=== PATIENT | female | born 1995 | race Asian ===

== ENCOUNTER 2018-03-30 05:42 | Inpatient (IN) ==
[2018-03-30] MEDS ORDERED: ONDANSETRON INJ 2 MG/ML 2 ML VIAL IV STA (06:04)
[2018-03-30] MEDS ORDERED: SODIUM CHLORIDE 0.9% 1000ML 2,000 ML IV SCH (06:15)
[2018-03-30] MEDS ORDERED: fentaNYL citrate 100 MCG/2 ML VIAL IV STA (06:28)
[2018-03-30 06:51] LABS: Albumin Level 4.3 gm/dl (3.4-5.0); BUN Creatinine Ratio 20.8 (10-20); Calcium 9.1 mg/dl (8.5-10.1); Creatinine Clr Calc Pharmacy 65.7 ml/min; Est GFR (African American) 81.3; Est GFR (Non-African American) 70.2; Potassium 4.2 mmol/L (3.5-5.1)
[2018-03-30 06:54] LABS: Albumin Globulin Ratio 0.9 (0.9-2); Bilirubin,Total 0.4 mg/dl (0.2-1); Globulin 4.9 gm/dl (2.5-4.0); Total Protein 9.2 gm/dl (6.4-8.2)
[2018-03-30 07:09] LABS: Hematocrit (blood only) 48.1 % (37-47); Hemoglobin 16.8 g/dL (12.0-16.0); Mean Corpuscular Hgb Conc 34.9 g/dL (32-36); Mean Corpuscular Volume 79.4 fL (80-100); Mean Platelet Volume 8.9 fL (7.4-10.4); Platelet Count 400 K/uL (130-400); RDW Coefficient of Variation 13.3 % (11.5-14.5); Red Blood Count 6.06 M/uL (4.2-5.4); White Blood Count 8.07 K/uL (4.8-10.8)
[2018-03-30 07:11] LABS: Basophils # (auto) 0.02 K/uL (0-0.2); Basophils % (auto) 0.2 %; Eosinophils # (auto) 0.01 K/uL (0-0.5); Eosinophils % (auto) 0.1 %; Immature Granulocytes # (auto) 0.06 K/uL (0.00-0.02); Immature Granulocytes % (auto) 0.7 %; Lymphocytes # (auto) 1.79 K/uL (1.2-3.4); Lymphocytes % (auto) 22.2 %; Monocytes # (auto) 0.99 K/uL (0.11-0.59); Monocytes % (auto) 12.3 %; Neutrophils % (auto) 64.5 %
--- NOTE | 2018-03-30 07:23 | Emergency Department Note ---
Entered by Leyda Hagan acting as a scribe for Kizzy Blanton DO History of Present Illness General Chief complaint: Dizziness Stated complaint: DIZZY,NAUSEAOUS,TROUBLE BREATHING,IN ON TUESDAY Time Seen by Provider: 03/30/18 05:48 Source: patient Limitations: no limitations History of Present Illness Onset (ago): day(s) 4 Location: abdomen Pain Consistency: + other (persistent ) Quality: + other (nausea and pain) Relieved By: + none Exacerbated By: + none Associated symptoms: + denies other symptoms (leg cramping/swelling) and + other (loss of appetitie, difficulty breathing) The patient is a 22 year old female who presents to the Emergency Room with complaints of persistent nausea and abdominal pain that began 4 days ago. The patient states that she was in the ER three days ago for a viral illness. She complains of diarrhea that was persistent all day two days ago and subsided yesterday morning. The patient complains of a loss of appetite. She notes that she has difficulty breathing, stating that she's been taking deep breaths so she does not vomit. She denies any leg cramping or swelling. The patient denies any modifying factors. The patient notes a history of pseudohypoaldosteronism, stating that she takes sodium chloride daily for it. She reports that her LKNP ended yesterday. Home Medications Home Medications Medication Instructions Recorded Confirmed Type Sodium Chloride 30 ml PO BID #0 03/27/15 History ondansetron 4 mg PO Q6H PRN #15 tab 03/27/18 Rx acetaminophen [Tylenol] 325 mg PO UD 03/30/18 03/30/18 History ibuprofen 200 mg PO UD 03/30/18 03/30/18 History Allergies Allergy/AdvReac Type Severity Reaction Status Date / Time No Known Allergies Allergy Unverified 03/30/18 07:20 Past Med/Surg History Medical History Gastroenteritis (Acute) Pseudohypoaldosteronism Acute bronchitis (Acute) Surgical History No pertinent past surgical history Family History Other No pertinent family history Social History Feels Safe at Home: Yes Smoking Status: Never smoker Preferred Language: Serbian Review of Systems See HPI for pertinent positives & negatives. and A total of 10 systems reviewed and were otherwise negative Physical Exam Vital Signs Vital Signs - 24 hr 03/30/18 05:45 03/30/18 06:19 03/30/18 06:30 Temperature 36.3 C L Temperature Source Oral Sepsis Recent Fever Within 48 Hours No Sepsis Action Taken by Nursing No Action Required Pulse Rate 122 H Pulse Rate [Apical] 88 89 Pulse Rhythm Regular Pulse Strength Normal Respiratory Rate 18 16 17 Respiratory Effort / Characteristics Non-Labored Spontaneous Respiratory Depth Normal Respiratory Pattern Regular Blood Pressure 114/77 Blood Pressure [Right Arm] 126/94 108/84 Blood Pressure Mean 89 Blood Pressure Mean [Right Arm] 104 92 Blood Pressure Position Sitting Pulse Oximetry 99 99 100 Oxygen Delivery Method Room Air Room Air Room Air HEENT: Head - normocephalic and atraumatic Pupils are equal, round, and reactive to light. Extraocular eye muscles are intact, and sclera are anicteric. Nose - moist nasal mucosa without discharge. Mouth - dry buccal mucosa. She has cracked lips. Oropharynx is nonerythematous and there is no tonsillar exudate or edema noted. Neck: Supple; no JVD, nuchal rigidity, cervical lymphadenopathy. Heart: Tachycardic rate and regular rhythm. There is a normal S1 and S2 with no murmurs, clicks, or gallops appreciated. Lungs: Clear to auscultation bilaterally with no wheezes, rales, or rhonchi. Abdomen: Soft, nondistended, with good bowel sounds. There are no palpable pulsatile masses or hepatosplenomegaly. There is no guarding, rigidity, or rebound noted. She has mild periumbilical pain with palpation. Extremities: No evidence of cyanosis, clubbing, or edema. There are easily palpable peripheral pulses. Skin: warm and extremely dry with poor turgor and no rashes. Course 0600: Past medical records reviewed. Her medical records state that she was seen in the ER three days ago with a viral illness. The patient was evaluated in room A12B, and a complete history and physical examination were performed. 0604: Zofran 4 mg IV 0615: NSS 2000 mls @ 999 mls/hr IV 0618: The patient asked for something for pain. She complains of pain, describing it as an 8/10 in severity, in the epigastric area. 0628: Fentanyl Citrate 50 mcg IV 0656: I checked on the patient. She stated that she vomited 4 times 3 days ago, but she has not vomited since. The patient stated that she did not take her sodium chloride, because she was afraid she would vomit it back up. She stated that the Fentanyl relieved her epigastric pain. 0709: I spoke to Dr. Purdy, [facility] hospitalist, about the patient's case. He will evaluate the patient further. Consultations Consultation #1: I spoke to Dr. Purdy, [facility] hospitalist, about the patient's case. He will evaluate the patient further. Time: 07:09 Administered Medications Sodium Chloride (Nss 1000ml) 2,000 mls @ 999 mls/hr IV .Q2H1M ALLEN Stop: 03/30/18 08:15 Last Admin: 03/30/18 06:14 Dose: 999 mls/hr Discontinued Medications Fentanyl Citrate (Fentanyl Citrate) 50 mcg IV NOW STA Stop: 03/30/18 06:29 Last Admin: 03/30/18 06:32 Dose: 50 mcg Ondansetron HCl (Zofran) 4 mg IV NOW STA Stop: 03/30/18 06:05 Last Admin: 03/30/18 06:14 Dose: 4 mg Medical Decision Making Differential Diagnosis The differential diagnosis includes: hyponatremia, hyperkalemia, dehydration, acute kidney injury, and viral illness. Medical Records Attestation: I reviewed the patient's medical records. Home Medications Current Medication List: was personally reviewed by me Laboratory Data Attestation: I reviewed the patient's lab results. Result diagrams: 03/30/18 06:00 03/30/18 06:00 Lab Results 03/30/18 03/30/18 Range/Units 06:00 06:00 WBC 8.07 (4.8-10.8) K/uL RBC 6.06 H (4.2-5.4) M/uL Hgb 16.8 H (12.0-16.0) g/dL Hct 48.1 H (37-47) % MCV 79.4 L (80-100) fL MCH 27.7 (25-34) pg MCHC 34.9 (32-36) g/dL RDW Std Deviation 38.0 (36.4-46.3) fL RDW Coeff of Sherine 13.3 (11.5-14.5) % Plt Count 400 (130-400) K/uL MPV 8.9 (7.4-10.4) fL Immature Gran % (Auto) 0.7 % Neut % (Auto) 64.5 % Lymph % (Auto) 22.2 % [place] % (Auto) 12.3 % Eos % (Auto) 0.1 % Baso % (Auto) 0.2 % Immature Gran # (Auto) 0.06 H (0.00-0.02) K/uL Neut # (Auto) 5.20 (1.4-6.5) K/uL Lymph # (Auto) 1.79 (1.2-3.4) K/uL [place] # (Auto) 0.99 H (0.11-0.59) K/uL Eos # (Auto) 0.01 (0-0.5) K/uL Baso # (Auto) 0.02 (0-0.2) K/uL Sodium 125 L (136-145) mmol/L Potassium 4.2 (3.5-5.1) mmol/L Chloride 103 (98-107) mmol/L Carbon Dioxide 10 L (21-32) mmol/L Anion Gap 12.0 H (3-11) BUN 23 H (7-18) mg/dl Creatinine 1.12 (0.6-1.2) mg/dl Est Cr Clr Drug Dosing 65.7 ml/min Est GFR ( Amer) 81.3 Est GFR (Non-Af Amer) 70.2 BUN/Creatinine Ratio 20.8 H (10-20) Glucose 108 H (70-99) mg/dl Calcium 9.1 (8.5-10.1) mg/dl Total Bilirubin 0.4 (0.2-1) mg/dl AST 13 L (15-37) U/L ALT 19 (12-78) U/L Alkaline Phosphatase 103 (45-117) U/L Total Protein 9.2 H (6.4-8.2) gm/dl Albumin 4.3 (3.4-5.0) gm/dl Globulin 4.9 H (2.5-4.0) gm/dl Albumin/Globulin Ratio 0.9 (0.9-2) Lipase 2748 H (73-393) U/L Blood Pressure Blood Pressure Findings: Normal blood pressure Blood Pressure Disposition: did not require urgent referral MDM Narrative The patient is a 22 year old female who presents to the Emergency Room with complaints of persistent nausea and abdominal pain that began 4 days ago. The patient was seen here in the emergency department 4 days ago for a viral illness. At that time, her sodium and potassium were normal. Since discharge, she has been unable to take in fluids or eat. She has not been able to take her sodium chloride pills. Patient now feels very weak, nauseated and has epigastric pain. The patient's sodium has dropped from 131-125. She has an elevated H&H consistent with hemoconcentration. The patient was hydrated with IV normal saline here in the department. She was given Zofran for her nausea and fentanyl for her epigastric discomfort. She is feeling somewhat better but with the patient's past medical history and significant drop of her sodium, she will be evaluated by the [facility] Hospitalist for further inpatient care. Impression & Plan Hyponatremia, Dehydration Discharge Plan Visit Data Chief Complaint: Dizziness Stated Complaint: DIZZY,NAUSEAOUS,TROUBLE BREATHING,IN ON TUESDAY ED Provider: Kizzy Blanton Discharge Problem: Hyponatremia, Dehydration Patient Disposition: Being Evaluated by Hospitalist Forms Stand Alone Forms: [facility] Prescriptions Prescriptions: No Action Sodium Chloride 1,000 ML solution 30 ml PO BID Qty: 0 RF: 0 ondansetron 4 mg tablet,disintegrating 4 mg PO Q6H PRN (Reason: nausea and vomiting) Qty: 15 RF: 0 acetaminophen [Tylenol] 325 mg Tablet 325 mg PO UD RF: 0 ibuprofen 200 mg Tablet 200 mg PO UD RF: 0 Referrals Referrals: [place] [Primary Care Provider] - The emanuelibe's documentation has been prepared under my direction and personally reviewed by me in its entirety. I confirm that the note above accurately reflects all work, treatment, procedures, and medical decision making performed by me.
--- NOTE | 2018-03-30 08:05 | History & Physical Report ---
Date of Service March 30, 2018 Assessment & Plan (1) Hyponatremia: Patient is pseudohypoaldosteronism which places her at risk for hyponatremia not mediated by the kidneys or true reduction in aldosterone. The patient needs infusion of sodium and she typically takes oral sodium. We will have her on normal saline we will try to replete her oral sodium with sodium tablets that she typically takes sodium solution. I did phone her pharmacist to try to work on equivalency dosing for this. (2) Pseudohypoaldosteronism: (3) Gastroenteritis: Patient is a gastritis type symptoms. Her epigastric pain makes me concerned for possible gastritis or peptic ulcer disease. She will be placed on a clear liquid diet Pepcid IV will follow her hemoglobin is currently stable. Her black bowel movements likely are explained by her Pepto-Bismol intake. With her elevation of her lipase this could be from her vomiting we will trend this will obtain a CT scan of her abdomen pelvis if her lipase is not improve with symptomatic treatment History of Present Illness Primary Care Provider: [facility] Patient presents to the ER he has a second recurrence for diffuse abdominal pain and gastroenteritis type symptoms with a history of pseudohypoaldosteronism. Patient is on chronic daily's salt supplementation and today her sodium is 125. Patient states that on Tuesday which is approximately 4 days prior she began developing some nausea and diarrhea this progressed she saw the ER the she was hydrated given antiemetics she returned after having intense epigastric abdominal pain. She did have some black stools but did take Pepto-Bismol at home. She is never had a stomach ulcer or problems with gallbladder or pancreatitis. Curiously her lipase is elevated on presentation In the ER she was hydrated with saline given a parenteral opiate pain medications and recommended for intake Allergies Allergy/AdvReac Type Severity Reaction Status Date / Time No Known Allergies Allergy Unverified 03/30/18 07:20 Home Medications Home Medications Medication Instructions Recorded Confirmed Type Sodium Chloride 30 ml PO BID #0 03/27/15 03/30/18 History ondansetron 4 mg PO Q6H PRN #15 tab 03/27/18 03/30/18 Rx acetaminophen [Tylenol] 325 mg PO UD 03/30/18 03/30/18 History ibuprofen 200 mg PO UD 03/30/18 03/30/18 History Past Med/Surg History Medical History Gastroenteritis (Acute) Pseudohypoaldosteronism Acute bronchitis (Acute) Surgical History No pertinent past surgical history Family History Other No pertinent family history Social History Feels Safe at Home: Yes Smoking Status: Never smoker Preferred Language: [place] Islander Review of Systems ROS: Fatigued and tired No double vision blurry vision No problems with speech or swallowing No palpitations, chest pain or pressure No Wheezing or breathing issues Epigastric abdominal pain with nausea vomiting and diarrhea No burning urine urine frequency or changes in color Diffuse myalgias No skin rashes or oral lesions No unusual bruising or bleeding No focused back pain or numbness or loss of strength No changes in memory or confusion Physical Exam 2 Vital Signs (Past 24 Hours): Last Vital Signs Temp 36.3 C L 03/30/18 05:45 Pulse 103 H 03/30/18 07:48 Resp 16 03/30/18 07:48 BP 137/99 03/30/18 07:48 Pulse Ox 97 03/30/18 07:48 The patient appeared well nourished and normally developed. She may have some moonlike feces Vital signs as documented. Head exam is unremarkable. normocephalic, atraumatic Oropharynx is dry mucous membranes Neck is without jugular venous distension, thyromegaly, or lymphademopathy Lungs are clear to auscultation and percussion. Cardiac exam reveals Rhythm is regular. First and second heart sounds normal. Abdominal exam reveals normal bowel sounds, no masses, no organomegaly very mild tenderness in the epigastrium no guarding or rebound Extremities are nonedematous and both pedal pulses are present Neurologic exam is A&Ox3, no focal deficits, strength is equal bilateral Psychologically seems neither anxious or depressed Skin is warm Dry without bruises or lesions
[2018-03-30 09:55] LABS: Appearance Urine Clear (Clear); Bacteria Urine Automated Negative (Negative); Bilirubin Urine Negative (Negative); Color Urine Yellow; Epithelial Cell Urine Auto >30 /lpf (0-5); Glucose Urine UA Negative (Negative); Ketones Urine Trace (Negative); Leukocyte Esterase Urine Negative (Negative); Nitrite Urine Negative (Negative); Protein Urine Negative (Negative); Urobilinogen Urine Negative (Negative)
[2018-03-30] MEDS ORDERED: MoRPHine SULFATE 4 MG/ML 1 ML CARP\\VIAL IV PRN (11:17)
[2018-03-30] MEDS ORDERED: ONDANSETRON INJ 2 MG/ML 2 ML VIAL IV PRN (11:17)
[2018-03-30] MEDS ORDERED: ACETAMINOPHEN 325 MG TAB PO PRN (11:17)
[2018-03-30] MEDS: FAMOTIDINE 20 MG in SYRINGE 3 ML IV SCH ×2 (12:32→20:18)
[2018-03-30] MEDS: SODIUM CHLORIDE 0.9% 1000ML 1,000 ML IV SCH ×2 (12:32→20:18)
[2018-03-30] MEDS: SODIUM CHLORIDE 1 GM TABLET PO SCH ×2 (13:17→16:15)
[2018-03-30 15:20] LABS: BUN Creatinine Ratio 18.6 (10-20); Calcium 7.9 mg/dl (8.5-10.1); Creatinine Clr Calc Pharmacy 95.6 ml/min; Est GFR (African American) 127.9; Est GFR (Non-African American) 110.4; Potassium 4.4 mmol/L (3.5-5.1)
[2018-03-31] MEDS: SODIUM CHLORIDE 0.9% 1000ML 1,000 ML IV SCH (03:08)
[2018-03-31 06:50] LABS: Hematocrit (blood only) 37.7 % (37-47); Hemoglobin 12.7 g/dL (12.0-16.0); Mean Corpuscular Hgb Conc 33.7 g/dL (32-36); Mean Corpuscular Volume 81.4 fL (80-100); Mean Platelet Volume 8.3 fL (7.4-10.4); Platelet Count 284 K/uL (130-400); RDW Coefficient of Variation 13.7 % (11.5-14.5); RDW Standard Deviation 40.6 fL (36.4-46.3); Red Blood Count 4.63 M/uL (4.2-5.4); White Blood Count 5.06 K/uL (4.8-10.8)
[2018-03-31 07:21] LABS: BUN Creatinine Ratio 11.7 (10-20); Calcium 7.8 mg/dl (8.5-10.1); Creatinine Clr Calc Pharmacy 113.3 ml/min; Est GFR (African American) 147.1; Est GFR (Non-African American) 126.9; Potassium 4.6 mmol/L (3.5-5.1)
[2018-03-31] MEDS ORDERED: CONSULT PHARMACY STA (07:29)
[2018-03-31] MEDS: SODIUM CHLORIDE 1 GM TABLET PO SCH (08:22)
[2018-03-31] MEDS ORDERED: SODIUM CHLORIDE 1 GM TABLET PO SCH (11:30)
--- NOTE | 2018-03-31 15:12 | Discharge Summary ---
Date of Service March 31, 2018 Admission HPI Per Admitting Provider Patient presents to the ER he has a second recurrence for diffuse abdominal pain and gastroenteritis type symptoms with a history of pseudohypoaldosteronism. Patient is on chronic daily's salt supplementation and today her sodium is 125. Patient states that on Tuesday which is approximately 4 days prior she began developing some nausea and diarrhea this progressed she saw the ER the she was hydrated given antiemetics she returned after having intense epigastric abdominal pain. She did have some black stools but did take Pepto-Bismol at home. She is never had a stomach ulcer or problems with gallbladder or pancreatitis. Curiously her lipase is elevated on presentation In the ER she was hydrated with saline given a parenteral opiate pain medications and recommended for intake Principal Diagnosis hyponatremia, pseudohypoaldosteronism Discharge Exam Constitutional well developed and average body habitus Eyes no conjunctival abnormality and no scleral abnormality Neck normal visual inspection and trachea midline Respiratory normal respiratory effort; no respiratory distress Auscultation: lungs clear to auscultation bilaterally Cardiovascular RRR, no murmur, no edema Gastrointestinal (Abdomen) normal bowel sounds, soft, nontender, no hepatosplenomegaly Musculoskeletal no cyanosis or clubbing, extremities motor strength 5/5 Discharge Data Allergies Allergy/AdvReac Type Severity Reaction Status Date / Time No Known Allergies Allergy Unverified 03/30/18 07:20 Hospital Course (1) Hyponatremia: Patient is pseudohypoaldosteronism which places her at risk for hyponatremia not mediated by the kidneys or true reduction in aldosterone. He has had improvement of her sodium level she is agreeable be agreeable to be home on sodium chloride tablets her sodium was 135 at time of discharge she had no further GI blood losses and was able to eat a normal diet (2) Pseudohypoaldosteronism: (3) Gastroenteritis: Patient is a gastritis type symptoms. Her epigastric pain makes me concerned for possible gastritis or peptic ulcer disease. She will be on outpatient Pepcid if she continues to have abdominal discomfort Total Time Total Time Spent Total Time Spent (In Minutes): greater than 30 minutes were required to prepare discharge Discharge Plan Discharge Items Patient Disposition: Home - Self-Care Reason For Visit: HYPONATREMIA Discharge Diagnosis: hyponatremia, gastroenteritis Discharge Goals: Decrease discomfort, Diagnostic testing and Improve disease control Non-emergency contact: Primary Care Provider Call non-emergency contact if: you have any medication questions Diet: Regular Addtl Provider Instructions: please consider using pepcid over the counter is you have stomach ache Prescriptions: New sodium chloride 1 gram Tablet 1 g PO AC Qty: 90 RF: 6 Continue ondansetron 4 mg tablet,disintegrating 4 mg PO Q6H PRN (Reason: nausea and vomiting) Qty: 15 RF: 0 acetaminophen [Tylenol] 325 mg Tablet 325 mg PO UD RF: 0 Discontinued Sodium Chloride 1,000 ML solution 30 ml PO BID Qty: 0 RF: 0 ibuprofen 200 mg Tablet 200 mg PO UD RF: 0 Stand-Alone Forms: [facility] Discharge Orders: Discharge Order (Routine); Ordered 03/31/18 Ordered By: Genaro Angeles Admission Data Admit Date/Time: 03/30/18 07:21 Attending Provider: Genaro Angeles Admit Provider: Genrao Angeles Primary Care Provider: [place] Service: Telemetry Other Interventions: Discharge Summary Assessment (RN) Last Done: 03/31/18 08:09 DC Date/Time DO NOT enter until pt leaves facility: 03/31/18 08:40
== END 2018-03-31 08:40 | disposition home or self-care (01) | DRG 641 ==
LOC: ED 05:42 → 2W 07:21